=== PATIENT | male | born 1940 | race American Indian/Alaskan Native ===

== ENCOUNTER 2017-08-13 19:40 | Emergency (ER) | payer MEDICARE, MEDICAID ==
--- NOTE | 2017-08-13 20:07 | Emergency Department Report ---
ED CPR HPI - General Chief Complaint: Cardiac Arrest/CPR Stated Complaint: CARDIAC ARREST Time Seen by Provider: 08/13/17 20:06 Source: EMS (verbal report received from EMS.ems notes not available at time of chart dictation) Limitations: Other (patient intubated, nonverbal, GCS of 3) - History of Present Illness Initial Comments: This is an approximately 76-year-old -[place] gentleman, brought to the hospital by EMS as an out of hospital cardiac arrest. As per verbal report from EMS, patient found in bed at a [facility], pulseless for uncertain duration of time. EMS was contacted, they intubated the patient, and provided high-quality CPR, followed standard [facility] protocols, including chest compressions , epinephrine 5, patient did not have V. fib or V. tach, he did not have a shockable rhythm, initial presenting rhythm was pulseless electrical activity. Upon arrival to the ER, patient remained pulseless, pupils were midpoint and nonreactive, no pulses could be obtained on serial examinations, bedside ultrasound did not demonstrate pulse waveforms on carotid artery, and there was no coordinated cardiac/ventricular activity on bedside ultrasound. Patient arrived in the ER after being pulseless for over an hour, therefore resuscitation efforts were terminated secondary to medical futility. Family was informed. Case was discussed with the patient's private physician, Dr. Ernie Olivarez, who agreed to fill out the certificate. Complaint: found unresponsive, unknown Place: NH/SNF Initial Findings in the Field: unresponsive, no pulse ROSC in the Field: No Associated Injuries: No Associated Symptoms: shortness of breath Treatments Prior to Arrival: chest compressions, epinephrine mgs # ED Review of Systems ROS: Stated complaint: CARDIAC ARREST Other details as noted in HPI Comment: Unobtainable due to pts medical conditions ED Physical Exam - General Limitations: Other (intubated, nonverbal, GCS of 3) General appearance: other (intubated, nonresponsive) - Head Head exam: Present: normal inspection - Eye Eye exam: Present: other (pupils midpoint, do not react to light) - ENT ENT exam: Present: other (endotracheal tube noted in oropharynx) - Neck Neck exam: Present: normal inspection - Respiratory Respiratory exam: Present: other (no breath sounds appreciated, unless bag-valve -mask ventilation is applied) - Cardiovascular Cardiovascular Exam: Present: other (no pulses appreciated) - GI/Abdominal GI/Abdominal exam: Present: soft - exam: Present: normal inspection - Extremities Exam Extremities exam: Present: normal inspection - Back Exam Back exam: Present: normal inspection - Neurological Exam Neurological exam: Present: other (intubated, nonverbal) - Psychiatric Psychiatric exam: Present: other (patient is nonverbal) - Skin Skin exam: Present: dry ED Medical Decision Making - Differential Diagnosis acute coronary syndrome, pneumonia, sepsis, intracranial hemorrhage Critical care attestation.: If time is entered above; I have spent that time in minutes in the direct care of this critically ill patient, excluding procedure time. ED Disposition Clinical Impression: Cardiac arrest Disposition: DC-20 Is pt being admited?: No Does the pt Need Aspirin: No Condition: Undetermined Referrals: PRIMARY CARE,MD [Primary Care Provider] - 3-5 Days
== END 2017-08-13 23:16 ==
LOC: ED 19:40
DX: I46.9 Cardiac arrest, cause unspecified (principal)